=== PATIENT | male | born 1955 | race Caucasian/White ===

== ENCOUNTER 2020-12-13 19:58 | Inpatient (IN) | payer OTHER ==
[~2020-12-13] VITALS: Ht 182.9 cm; Wt 98.0 kg
[~2020-12-13 19:58] MED LIST: AMLODIPINE BESY10 MG PO; ATENOLOL 100MG100 M2 PO; EDARBI80 MG PO; GLYBURIDE 5 MG T5 M1 PO; HYDROCHLOROTHIA25 M1 PO; KOMBIGLYZE XR1 EAC1 PO; NORCO 5-325 TA1 EACH PO; SIMVASTATIN40 MG PO; TAZTIA XT120 M1 PO
[2020-12-13 20:10] VITALS: BP 183/117
[2020-12-13] MEDS ORDERED: ELIQUIS5 MG PO (20:30)
[2020-12-13] MEDS ORDERED: TYLENOL325 M1 PO (20:30)
[2020-12-13] MEDS ORDERED: LIPITOR80 MG PO (20:31)
[2020-12-13] MEDS ORDERED: CELEXA 20 MG TA20 MG PO (20:31)
[2020-12-13] MEDS ORDERED: CARVEDILOL12.5 MG PO (20:31)
[2020-12-13] MEDS ORDERED: ASPIRIN EC81 M1 PO (20:31)
[2020-12-13] MEDS ORDERED: FUROSEMIDE 20 M20 MG PO (20:32)
[2020-12-13] MEDS ORDERED: ISOSORBIDE DN 110 M1 PO (20:32)
[2020-12-13] MEDS ORDERED: VYZULTA5 ML OPHTHALMIC (20:32)
[2020-12-13] MEDS ORDERED: COZAAR 25 MG TA25 M1 PO (20:33)
[2020-12-13] MEDS ORDERED: DAILY VITAMIN1 EAC6 PO (20:33)
[2020-12-13] MEDS ORDERED: METFORMIN HCL500 M3 PO (20:33)
[2020-12-13] MEDS ORDERED: NITROSTAT0.4 M1 SUBLING (20:34)
[2020-12-13] MEDS ORDERED: PROTONIX40 M2 PO (20:35)
[2020-12-13] MEDS ORDERED: SPIRONOLACTONE25 MG PO (20:35)
[2020-12-13 20:43] LABS: ABSOLUTE BASOPHILS 0.1 thou/uL (0.0-0.2); ABSOLUTE EOSINOPHILS 0.2 thou/uL (0.0-0.7); ABSOLUTE MONOCYTES 0.9 thou/uL (0.0-1.2); ABSOLUTE NEUTROPHILS 4.9 thou/uL (1.6-8.1); BASOPHILS 0.7 %; HEMOGLOBIN 12.2 gm/dL (14.0-18.0); LYMPHOCYTES 24.7 %; MCH 28.7 pg (26.0-34.0); MCHC 32.8 g/dL (28.0-37.0); MCV 87.6 fL (80.0-100.0); MPV 7.1 fl. (7.2-11.1); NUCLEATED RBCS 0 /100WBC; PLATELET COUNT* 533 thou/uL (150-400); POLYS 61.6 %; RBC 4.23 mil/uL (4.50-6.00); RDW-CV 14.9 % (10.5-14.5)
[2020-12-13 20:56] LABS: APTT 30.3 Seconds (25.0-31.3); INR 1.1; PROTIME 11.4 Seconds (9.20-11.50)
[2020-12-13 20:58] LABS: CALCIUM 8.9 mg/dL (8.5-10.1); CREATININE 1.3 mg/dL (0.6-1.3); POTASSIUM 5.3 mmol/L (3.5-5.1)
[2020-12-13 21:04] LABS: ALBUMIN 3.1 g/dL (3.4-5.0); TOTAL BILIRUBIN 0.3 mg/dL (<0.1-1.0); TOTAL PROTEIN 6.9 g/dL (6.4-8.2)
[2020-12-13 21:51] VITALS: BP 158/97
[2020-12-13 22:30] VITALS: BP 156/111
[2020-12-13 23:00] VITALS: BP 130/85
[2020-12-13 23:30] VITALS: BP 144/92
[2020-12-14] VITALS (47 sets, daily range): BP systolic 99–162; BP diastolic 54–103
--- NOTE | 2020-12-14 13:56 | EKG ---
[place] [address] ELECTROCARDIOGRAM REPORT Name: KENAN BOB JR Room: [address] ADM IN .R.#: [id number] Admission: 12/13/20 Attend Phys: Mark Shook Discharge: Date of : 53 Date of Service: 12/13/202013 Report #: [id number] THIS REPORT FOR: //name// [facility] ED Test Date: 2020-12-13 Test Time: 20:14:17 Pat Name: KENAN BOB Department: Room: [facility] Gender: M Documentation Manager: DEA : 1955 Requested By: Jesika Jaramillo Order Number: [id number] MD: Ramón Rogers Measurements Intervals [place] Rate: 95 P: -56 [place]: 172 QRS: 50 QRSD: 102 T: 60 QT: 346 QTc: 435 Interpretive Statements Sinus rhythm Probable anterolateral infarct, acute injury must be considered Baseline wander in lead(s) I,II,aVR No previous ECG available for comparison Electronically Signed On 12-14-2020 13:55:59 CDT by Ramón Rogers [email or web address] <ELECTRONICALLY SIGNED> By: Ramón Rogers MD, [facility] 12/14/20 1355 13 13 Ramón Rogers MD, [facility] /EPI
[2020-12-14 15:26] LABS: CALCIUM 8.1 mg/dL (8.5-10.1); CREATININE 1.3 mg/dL (0.6-1.3); POTASSIUM 4.2 mmol/L (3.5-5.1)
--- NOTE | 2020-12-14 16:47 | 2DMMODE ---
[place] [address] 2 D/M-MODE ECHOCARDIOGRAM Name: KENAN BOB Room: [address] ADM IN .R.#: [id number] Admission: 12/13/20 Attend Phys: Mark Shook Discharge: Date of : 53 Date of Service: 12/14/20 1646 Report #: [id number] THIS REPORT FOR: cc: GODWIN HOLLADN,GODWIN Rogers,aRmón Fabian MD [facility] ~ APPROVED REPORT Study performed: 12/14/2020 15:14:11 EXAM: Limited 2D Echocardiogram Room #: [facility] Status: routine BSA: 2.20 HR: 84 bpm BP: 121/71 mmHg Rhythm: NSR Other Information Study Quality: Good Indications Acute PR Left Ventricle The left ventricle is normal size. Regional wall motion abnormalities are noted with akinesis of the entire anterior wall with the exception of the proximal septum. Small apical thrombus is suggested. There is normal left ventricular wall thickness. Left ventricular systolic function is severely decreased. LVEF is 25-30%. Right Ventricle The right ventricle is normal size. The right ventricular systolic function is normal. Atria The left atrium size is normal. The right atrium size is normal. Aortic Valve Mild aortic valve sclerosis. No aortic regurgitation is present. Mitral Valve The mitral valve is normal in structure. Trace mitral [facility] [address] [place] [address] 2 D/M-MODE ECHOCARDIOGRAM Name: KENAN BOB Room: [address] IN .R.#: [id number] Admission: 12/13/20 Attend Phys: Mark Shook Discharge: Date of : 53 Date of Service: 12/14/201645 Report #: [id number] regurgitation. Tricuspid Valve The tricuspid valve is normal in structure. Trace tricuspid regurgitation. Pulmonic Valve The pulmonary valve is normal in structure. There is no pulmonic valvular regurgitation. Great Vessels The aortic root is normal in size. IVC is normal in size and collapses >50% with inspiration. Pericardium Left pleural effusion. <Conclusion> The left ventricle is normal size. There is normal left ventricular wall thickness. Left ventricular systolic function is severely decreased. LVEF is 25-30%. The right ventricle is normal size. The left atrium size is normal. Mild aortic valve sclerosis. The mitral valve is normal in structure. IVC is normal in size and collapses >50% with inspiration. Regional wall motion abnormalities are noted with akinesis of the entire anterior wall with the exception of the proximal septum. Small apical thrombus is suggested. <ELECTRONICALLY SIGNED> By: Ramón Rogers MD, [facility] 12/14/201645 45 1646 Ramón Rogers MD, FACC /INF
[2020-12-15] VITALS (26 sets, daily range): BP systolic 93–145; BP diastolic 46–89
[2020-12-15] MEDS ORDERED: LASIX 40 MG TAB40 M1 PO (11:54)
[2020-12-15] MEDS ORDERED: ISORDIL10 MG PO (11:54)
[2020-12-15] MEDS ORDERED: SPIRONOLACTONE25 MG PO (11:54)
[2020-12-15] MEDS ORDERED: COREG6.25 MG PO (11:54)
== END 2020-12-15 13:25 | disposition home or self-care (01) | DRG 640 ==
LOC: M.ERS 19:58 → M.ICU 21:10 → M.TBA-ER 21:10 → M.ICU 21:42
PROVIDERS: Personal Emergency Response Attendant; Registered Nurse; ADMIT Internal Medicine; ATTEND Internal Medicine
DX: E87.1 Hypo-osmolality and hyponatremia (principal); I50.23 Acute on chronic systolic (congestive) heart failure; G61.81 Chronic inflammatory demyelinating polyneuritis; I24.9 Acute ischemic heart disease, unspecified; I16.0 Hypertensive urgency; I11.0 Hypertensive heart disease with heart failure; I25.10 Atherosclerotic heart disease of native coronary artery without angina pectoris; E78.00 Pure hypercholesterolemia, unspecified; I25.5 Ischemic cardiomyopathy; E78.5 Hyperlipidemia, unspecified; E11.42 Type 2 diabetes mellitus with diabetic polyneuropathy; E87.5 Hyperkalemia; Z20.822 Contact with and (suspected) exposure to COVID-19; Z79.82 Long term (current) use of aspirin; I25.2 Old myocardial infarction; Z79.899 Other long term (current) drug therapy; Z79.01 Long term (current) use of anticoagulants; Z79.84 Long term (current) use of oral hypoglycemic drugs

== ENCOUNTER 2021-08-29 17:42 | Inpatient (IN) | payer OTHER ==
[~2021-08-29] VITALS: Ht 190.5 cm; Wt 124.5 kg
[~2021-08-29 17:42] MED LIST changes: +ASPIRIN EC81 M1 PO; +CARVEDILOL12.5 MG PO; +CELEXA 20 MG TA20 MG PO; +COREG6.25 MG PO; +COZAAR 25 MG TA25 M1 PO; +DAILY VITAMIN1 EAC6 PO; +ELIQUIS5 MG PO; +FUROSEMIDE 20 M20 MG PO; +ISORDIL10 MG PO; +ISOSORBIDE DN 110 M1 PO; +LASIX 40 MG TAB40 M1 PO; +LIPITOR80 MG PO; +METFORMIN HCL500 M3 PO; +NITROSTAT0.4 M1 SUBLING; +PROTONIX40 M2 PO; +SPIRONOLACTONE25 MG PO; +TYLENOL325 M1 PO; +VYZULTA5 ML OPHTHALMIC
[2021-08-29 17:44] VITALS: BP 150/89
[2021-08-29] MEDS ORDERED: COREG25 M1 PO (17:52)
[2021-08-29] MEDS ORDERED: CLONIDINE HCL0.1 MG PO (17:52)
[2021-08-29] MEDS ORDERED: ENTRESTO 97 MG1 EACH PO (17:53)
[2021-08-29] MEDS ORDERED: DEMADEX20 MG PO (17:53)
[2021-08-29] MEDS ORDERED: OMEPRAZOLE 20 M20 M1 PO (17:53)
[2021-08-29 18:17] LABS: CALCIUM 8.5 mg/dL (8.5-10.1); CREATININE 1.5 mg/dL (0.6-1.3); POTASSIUM 4.5 mmol/L (3.5-5.1)
[2021-08-29 18:19] LABS: ABSOLUTE EOSINOPHILS 0.1 thou/uL (0.0-0.7); ABSOLUTE LYMPHOCYTES 0.6 thou/uL (0.8-5.3); ABSOLUTE MONOCYTES 0.6 thou/uL (0.0-1.2); ABSOLUTE NEUTROPHILS 3.8 thou/uL (1.6-8.1); BASOPHILS 0.9 %; EOSINOPHILS 1.1 %; HEMOGLOBIN 9.9 gm/dL (14.0-18.0); LYMPHOCYTES 12.5 %; MCH 23.3 pg (26.0-34.0); MCHC 30.9 g/dL (28.0-37.0); MCV 75.6 fL (80.0-100.0); MPV 7.5 fl. (7.2-11.1); NUCLEATED RBCS 0 /100WBC; PLATELET COUNT* 330 thou/uL (150-400); POLYS 74.5 %; RBC 4.23 mil/uL (4.50-6.00); RDW-CV 19.2 % (10.5-14.5); WBC 5.1 thou/uL (4.0-11.0)
[2021-08-29 18:27] LABS: ALBUMIN 3.2 g/dL (3.4-5.0); MAGNESIUM 1.9 mg/dL (1.8-2.4); TOTAL BILIRUBIN 0.7 mg/dL (<0.1-1.0); TOTAL PROTEIN 6.5 g/dL (6.4-8.2)
[2021-08-29 22:20] LABS: URINE BILIRUBIN NEGATIVE (Negative); URINE BLOOD NEGATIVE (Negative); URINE CLARITY CLEAR; URINE COLOR YELLOW; URINE GLUCOSE-RANDOM NEGATIVE (Negative); URINE KETONES TRACE (Negative); URINE LEUKOCYTES-REFLEX NEGATIVE (Negative); URINE NITRITE-REFLEX NEGATIVE (Negative); URINE PROTEIN NEGATIVE (Negative); URINE UROBILINOGEN 0.2 E.U./dl (0.2-1.0)
[2021-08-29 22:34] VITALS: BP 164/68
[2021-08-30] VITALS (9 sets, daily range): BP systolic 127–157; BP diastolic 60–99
--- NOTE | 2021-08-30 09:53 | EKG ---
[place] [address] ELECTROCARDIOGRAM REPORT Name: KENAN BOB JR Room: [address] ADM IN [facility]#: [id number] Admission: 08/29/21 Attend Phys: Colin Bagley, Discharge: Date of : 53 Date of Service: 08/29/21 1747 Report #: [id number] THIS REPORT FOR: //name// [facility] ED Test Date: 2021-08-29 Test Time: 17:47:57 Pat Name: KENAN BOB Department: Room: [facility] Gender: M Mat Inspector: : 1955 Requested By: Nate Toledo Order Number: [id number] MD: Juancho Pavon Measurements Intervals [place] Rate: 71 P: 46 [place]: 191 QRS: 26 QRSD: 98 T: 69 QT: 572 QTc: 622 Interpretive Statements Sinus rhythm low voltage Anteroseptal infarct, age indeterminate Prolonged QT interval Compared to ECG 12/13/2020 20:14:17 Prolonged QT interval now present Myocardial infarct finding still present Electronically Signed On 08-30-2021 9:53:30 [employer] by Juancho Pavon [email or web address] <ELECTRONICALLY SIGNED> By: Juancho Pavon MD, FAC 08/30/21 0953 1747 1747 Juancho Pavon MD, FAC /EPI
--- NOTE | 2021-08-30 12:59 | 2DMMODE ---
[place] [address] 2 D/M-MODE ECHOCARDIOGRAM Name: KENAN BOB JR Room: [address] IN [facility]#: [id number] Admission: 08/29/21 Attend Phys: Colin Bagley, Discharge: Date of : 53 Date of Service: 08/30/21 1259 Report #: [id number] THIS REPORT FOR: cc: GODWIN HOLLAND,GODWIN Pavon,Juancho Fink MD [facility] ~ APPROVED REPORT Study performed: 08/30/2021 09:56:32 EXAM: Comprehensive 2D, Doppler, and color-flow Echocardiogram Patient Location: In-Patient Room #: [facility] Status: routine BSA: 2.45 HR: 63 bpm BP: 143/85 mmHg Rhythm: NSR Other Information Study Quality: Good Indications weakness 2D Dimensions IVSd: 12.89 (7-11mm) LVOT Diam: 21.28 (18-24mm) LVDd: 52.73 mm PWd: 12.05 (7-11mm) Ascending Ao: 38.69 (22-36mm) LVDs: 39.10 (25-40mm) Aortic Root: 34.47 mm Volumes Left Atrial Volume (Systole) LA ESV Index: 34.30 mL/m2 Aortic Valve AoV Peak Melo.: 1.33 m/s AO Peak Gr.: 7.06 mmHg LVOT Max P.67 mmHg AO Mean Gr.: 4.09 mmHg LVOT Mean P.47 mmHg LVOT Max V: 0.82 m/s AO V2 VTI: 30.06 cm LVOT Mean V: 0.57 m/s SEAN (VTI): 2.11 cm2 LVOT V1 VTI: 17.83 [place] [address] 2 D/M-MODE ECHOCARDIOGRAM Name: KENAN BOB JR Room: [address] IN ..#: [id number] Admission: 08/29/21 Attend Phys: Colin Bagley, Discharge: Date of : 53 Date of Service: 08/30/21 1259 Report #: [id number] Mitral Valve E/A Ratio: 0.83 MV Decel. Time: 178.04 ms MV E Max Melo.: 0.86 m/s MV PHT: 51.63 ms MVA (PHT): 4.26 cm2 TDI E/Lateral E': 7.82 E/Medial E': 12.29 Medial E' Melo.: 0.07 m/s Lateral E' Melo.: 0.11 m/s Pulmonary Valve PV Peak Melo.: 1.05 m/s PV Peak Gr.: 4.37 mmHg Tricuspid Valve RAP Estimate: 10.00 mmHg TR Peak Gr.: 36.45 mmHg RVSP: 46.00 mmHg PA Pressure: 46.00 mmHg Left Ventricle Left ventricle is mildly dilated. There is global hypokinesis of the left ventricle. Mild concentric left ventricular hypertrophy. Left ventricular systolic function is severely decreased. LVEF is 25-30%. Grade I - abnormal relaxation pattern. Right Ventricle Right ventricle is dilated. The right ventricular systolic function is normal. Atria The left atrium size is normal. Right atrium is dilated. Aortic Valve Mild aortic valve sclerosis. No aortic regurgitation is present. There is no aortic valvular stenosis. Mitral Valve The mitral valve is normal in structure. Mild mitral regurgitation. No evidence of mitral valve stenosis. Tricuspid Valve The tricuspid valve is normal in structure. Mild tricuspid regurgitation. estimated pa pressure 45 [place] [address] 2 D/M-MODE ECHOCARDIOGRAM Name: KENAN BOB JR Room: [address]#: [id number] Admission: 08/29/21 Attend Phys: Colin Bagley, Discharge: Date of : 53 Date of Service: 08/30/21 1259 Report #: [id number] The pulmonary valve is normal in structure. Mild pulmonic regurgitation. Great Vessels Aortic root is mildly dilated. IVC is dilated. Pericardium Trace pericardial effusion. Left pleural effusion. <Conclusion> Mild concentric left ventricular hypertrophy. LVEF is 25-30%. Mild aortic valve sclerosis. Mild mitral regurgitation. Mild tricuspid regurgitation. estimated pa pressure 45 mm Hg <ELECTRONICALLY SIGNED> By: Juancho Pavon MD, FACC 08/30/21 1259 1259 1259 Juancho Pavon MD, FACC /INF
[2021-08-31 02:06] LABS: GLYCOHEMOGLOBIN (HGB A1C) 6.9 % (4.8-5.6)
[2021-08-31 04:00] VITALS: BP 149/68
[2021-08-31 05:23] LABS: HEMATOCRIT 28.7 % (42.0-52.0); HEMOGLOBIN 8.8 gm/dL (14.0-18.0); MCH 23.4 pg (26.0-34.0); MCHC 30.5 g/dL (28.0-37.0); MCV 76.7 fL (80.0-100.0); MPV 7.3 fl. (7.2-11.1); RBC 3.75 mil/uL (4.50-6.00); RDW-CV 19.1 % (10.5-14.5); WBC 4.2 thou/uL (4.0-11.0)
[2021-08-31 06:14] LABS: ALBUMIN 3.1 g/dL (3.4-5.0); ALKALINE PHOSPHATASE 53 U/L (46-116); ANION GAP 6 mmol/L (7-16); BUN 33 mg/dL (7-18); CALCIUM 8.2 mg/dL (8.5-10.1); CHLORIDE 104 mmol/L (98-107); CHOLESTEROL 65 mg/dL (<200); CO2 30 mmol/L (21-32); CREATININE 1.3 mg/dL (0.6-1.3); GLUCOSE 112 mg/dL (70-99); HDL CHOLESTEROL 36 mg/dL (>40); LDL CHOLESTEROL 22 mg/dL (<100); MAGNESIUM 1.9 mg/dL (1.8-2.4); POTASSIUM 3.9 mmol/L (3.5-5.1); SGOT 17 U/L (15-37); SGPT 17 U/L (30-65); SODIUM 140 mmol/L (136-145); TC:HDL 1.8 Ratio (Not establshd); TOTAL BILIRUBIN 0.6 mg/dL (<0.1-1.0); TOTAL PROTEIN 6.2 g/dL (6.4-8.2); TRIGLYCERIDE 36 mg/dL (<150); VLDL 7 mg/dL (<40)
[2021-08-31 06:31] LABS: SERUM ASSESSMENT Clear
[2021-08-31 08:24] VITALS: BP 152/75
[2021-08-31 09:00] VITALS: BP 149/75
[2021-08-31 11:56] VITALS: BP 142/82
--- NOTE | 2021-08-31 14:18 | CON ---
[address] [address] CONSULTATION Name: KENAN BOB Room: [address] IN ..#: [id number] Admission: 08/29/21 Attend Phys: Colin Bagley MD Discharge: Date of : 53 Report #: [id number] THIS REPORT FOR: cc: GODWIN MORALES,Juancho Zuniga MD [facility] ~ cc: Godwin Morales DO DATE OF CONSULTATION: 08/30/2021 CARDIOLOGY CONSULTATION HISTORY OF PRESENT ILLNESS: The patient is a 65-year-old white male who I was asked to see in the hospital today after he complained to being short of breath. The patient notes that he has a long history of atrial fibrillation and has been on Eliquis. He apparently has never been cardioverted. He did have a treadmill test years ago, but never had a heart catheterization. He notes that last November he was short of breath and was admitted to [facility]. He was felt to have a cardiomyopathy with an ejection fraction of 30-35%. He was discharged. He has been on medications since that time. Recently, he has been having increasing shortness of breath, swollen feet and increasing abdominal girth. The dose of torsemide was increased by his doctor. However, yesterday because of increasing swelling, he finally came to the hospital and admitted for further evaluation and treatment. He denies recent chest pain, fever, cough, leg pain, palpitations, syncope. PAST MEDICAL HISTORY: He has had no surgical procedures. Does have a history of hypertension, diabetes. He has a history of CIDP and is followed by neurologist and received an infusion once a month by nurse at the home intravenously. It is an autoimmune disorder. CURRENT MEDICATIONS: Consists of Eliquis, Lipitor, carvedilol, clonidine, glyburide, Imdur, metformin, Entresto, torsemide. ALLERGIES: He has no known drug allergies. FAMILY HISTORY: Negative for heart disease. SOCIAL HISTORY: He is . He is retired from the [employer], lives in [place] with his . He ambulates with a walker. No smoking or alcohol use. REVIEW OF SYSTEMS: He is overweight being 6 feet 3 inches, 260 pounds. He does snore at night. No history of asthma, liver disease. He has chronic kidney disease. No cancer. No chronic skin condition. No [place] [address] CONSULTATION Name: KENAN BOB JR Room: [address]#: [id number] Admission: 08/29/21 Attend Phys: Colin Bagley MD Discharge: Date of : 53 Report #: [id number] wear glasses. PHYSICAL EXAMINATION: GENERAL: Revealed a middle-aged male, appeared in no acute distress. VITAL SIGNS: His blood pressure 140/80, pulse 70, he was afebrile. HEENT: He was anicteric. Conjunctivae pink. Mucous members moist. Neck veins nondistended. No carotid bruits. Neck is supple. CHEST: Decreased breath sounds at the bases. HEART: Regular rate and rhythm, no significant murmur. ABDOMEN: Obese. EXTREMITIES: He had a fluid wave noted. Bilateral edema up to the mid tibial area. SKIN: Cool and dry. NEUROLOGIC: Nonfocal. LABORATORY DATA: His ECG on admission showed a sinus rhythm with evidence of previous anterior infarction. No acute changes were noted. The patient actually had an echocardiogram done last December that showed an ejection fraction of 30% with aortic sclerosis. His x-rays, the patient had a portable chest x-ray in the Emergency Room yesterday that showed cardiomegaly, pulmonary vascular congestion, small effusion. His lab work, BUN 36, creatinine 1.5, albumin 3.2. High sensitivity troponin was 28. BNP 15,651. His hemoglobin 9.9. His COVID antigen stat test was negative. Urinalysis negative for protein. IMPRESSION AND RECOMMENDATIONS: 1. Acute on chronic systolic heart failure. The patient has been on Entresto and beta bonita. I would not recommend Aldactone because of chronic kidney disease. Recommend diuresis with IV Demadex. 2. History of atrial fibrillation. The patient is chronically anticoagulated with Eliquis. Currently in sinus rhythm. 3. Hypertension. The patient is on ARB and beta bonita and clonidine. 4. Diabetes. 5. Hyperlipidemia. The patient is on a statin drug. 6. Chronic kidney disease. The patient followed by Nephrology. 7. Obesity. 8. Snore at night. Would rule out sleep apnea. 9. History of chronic autoimmune disease. The patient received infusions once a month. <ELECTRONICALLY SIGNED> By: Juancho Pavon MD, [facility] 08/31/21 1418 1029 [id number] Pavon MD, [facility] /nt
[2021-08-31 16:05] VITALS: BP 149/75
[2021-09-01] VITALS: BP 147/79
[2021-09-01 04:00] VITALS: BP 138/83
[2021-09-01 05:13] LABS: HEMATOCRIT 29.4 % (42.0-52.0); HEMOGLOBIN 9.2 gm/dL (14.0-18.0); MCH 23.7 pg (26.0-34.0); MCHC 31.1 g/dL (28.0-37.0); MCV 76.2 fL (80.0-100.0); MPV 7.1 fl. (7.2-11.1); RBC 3.86 mil/uL (4.50-6.00); RDW-CV 19.2 % (10.5-14.5); WBC 4.6 thou/uL (4.0-11.0)
[2021-09-01 06:05] LABS: CALCIUM 8.7 mg/dL (8.5-10.1); CREATININE 1.2 mg/dL (0.6-1.3); MAGNESIUM 1.8 mg/dL (1.8-2.4); POTASSIUM 3.8 mmol/L (3.5-5.1)
[2021-09-01 06:15] LABS: ALBUMIN 3.1 g/dL (3.4-5.0); CALCIUM 8.4 mg/dL (8.5-10.1); CREATININE 1.2 mg/dL (0.6-1.3); TOTAL BILIRUBIN 0.6 mg/dL (<0.1-1.0)
[2021-09-01 07:49] VITALS: BP 147/84
[2021-09-01 09:00] VITALS: BP 147/84
[2021-09-01 16:00] VITALS: BP 146/73
[2021-09-02] VITALS: BP 115/55
[2021-09-02 04:00] VITALS: BP 163/93
[2021-09-02 04:00] LABS: HEMOGLOBIN 8.9 gm/dL (14.0-18.0); MCH 23.4 pg (26.0-34.0); MCHC 30.8 g/dL (28.0-37.0); MCV 75.9 fL (80.0-100.0); RBC 3.82 mil/uL (4.50-6.00); RDW-CV 19.6 % (10.5-14.5)
[2021-09-02 04:27] LABS: ALBUMIN 2.9 g/dL (3.4-5.0); CALCIUM 8.2 mg/dL (8.5-10.1); CREATININE 1.1 mg/dL (0.6-1.3); MAGNESIUM 1.9 mg/dL (1.8-2.4); POTASSIUM 4.3 mmol/L (3.5-5.1); TOTAL BILIRUBIN 0.6 mg/dL (<0.1-1.0)
--- NOTE | 2021-09-02 09:47 | CON ---
[address] [address] CONSULTATION Name: KENAN BOB Room: [address] IN .R.#: [id number] Admission: 08/29/21 Attend Phys: Colin Bagley MD Discharge: Date of : 53 Report #: [id number] THIS REPORT FOR: cc: GODWIN HOLLAND,GODWIN Simmons,Rony Starks MD ~ DATE OF CONSULTATION: 08/30/2021 REQUESTING PHYSICIAN: ____ REASON FOR CONSULTATION: Fluid overload and mild worsening renal function. HISTORY OF PRESENT ILLNESS: The patient is a very pleasant 65-year-old gentleman with medical history significant for coronary artery disease, ischemic cardiomyopathy with left ventricular ejection fraction around 25%, diabetes mellitus type 2, hypertension, who presents with complaints of progressive increased abdominal girth and increased lower extremity edema. He was diagnosed with fluid retention, congestive heart failure exacerbation, was given IV Lasix and he feels better now. He still is very edematous. His creatinine was 1.5, his baseline around 1.3. PAST MEDICAL HISTORY: As mentioned earlier. SOCIAL HISTORY: No current tobacco or alcohol abuse. MEDICATIONS: Reviewed. At home, he was taking torsemide 20 mg a day from the diuretic standpoint. REVIEW OF SYSTEMS: Positive for dyspnea on exertion, increased abdominal girth, increased weight and significant edema of his abdominal wall and lower extremities. Rest of the systems reviewed and negative. FAMILY HISTORY: Positive for diabetes and hypertension. PHYSICAL EXAMINATION: GENERAL: Awake, alert, and oriented. VITAL SIGNS: His blood pressure now is 133/70, heart rate 91, afebrile. HEENT: Pupils are round. NECK: Has elevated JVD. LUNGS: Decreased breath sounds in both bases. CARDIOVASCULAR: Distant heart tones. ABDOMEN: Distended. There is significant edema of abdominal wall. EXTREMITIES: Lower extremities with 4+ [place] [address] CONSULTATION Name: KENAN BOB JR Room: [address]#: [id number] Admission: 08/29/21 Attend Phys: Colin Bagley MD Discharge: Date of : 53 Report #: [id number] DIAGNOSTIC DATA: Chest x-ray revealed findings compatible with heart failure and with bilateral pleural effusion. ASSESSMENT: 1. Chronic kidney disease stage 3, baseline creatinine around 1.3 with mild bump in creatinine to 1.5. 2. Congestive heart failure exacerbation with significant fluid retention. 3. Diabetes mellitus type 2. 4. History of hypertension. 5. Cardiomyopathy with left ventricular ejection fraction of 25%. PLAN: We will diurese. I am going to put him on Lasix 40 mg IV q.12 hours. Follow his weight and follow his creatinine level. It is acceptable if creatinine bumps up somewhat. We need to control his fluids. Obviously, the patient cannot function with so much fluids on. We will follow his daily weights. <ELECTRONICALLY SIGNED> By: Rony Simmons MD 09/02/21 0947 0949 [id number] Simmons MD /nt
[2021-09-02 12:00] VITALS: BP 143/82
[2021-09-02 16:00] VITALS: BP 167/74
[2021-09-02 19:45] VITALS: BP 152/85
[2021-09-03] VITALS (7 sets, daily range): BP systolic 132–144; BP diastolic 71–83
[2021-09-03 05:43] LABS: HEMATOCRIT 29.1 % (42.0-52.0); HEMOGLOBIN 8.9 gm/dL (14.0-18.0); MCH 23.4 pg (26.0-34.0); MCHC 30.6 g/dL (28.0-37.0); MCV 76.5 fL (80.0-100.0); MPV 7.2 fl. (7.2-11.1); RBC 3.8 mil/uL (4.50-6.00); RDW-CV 19.1 % (10.5-14.5); WBC 4.1 thou/uL (4.0-11.0)
[2021-09-03 06:57] LABS: ALBUMIN 2.8 g/dL (3.4-5.0); CALCIUM 8.1 mg/dL (8.5-10.1); CREATININE 1.1 mg/dL (0.6-1.3); MAGNESIUM 1.6 mg/dL (1.8-2.4); TOTAL BILIRUBIN 0.6 mg/dL (<0.1-1.0)
[2021-09-04] VITALS: BP 122/58
[2021-09-04 04:00] VITALS: BP 133/75
[2021-09-04 05:27] LABS: ABSOLUTE EOSINOPHILS 0.2 thou/uL (0.0-0.7); ABSOLUTE LYMPHOCYTES 0.7 thou/uL (0.8-5.3); ABSOLUTE MONOCYTES 0.7 thou/uL (0.0-1.2); EOSINOPHILS 4.2 %; HEMATOCRIT 28.9 % (42.0-52.0); HEMOGLOBIN 8.9 gm/dL (14.0-18.0); LYMPHOCYTES 15.7 %; MCH 23.3 pg (26.0-34.0); MCHC 30.6 g/dL (28.0-37.0); MONOCYTES 14.4 %; MPV 7.5 fl. (7.2-11.1); NUCLEATED RBCS 0 /100WBC; PLATELET COUNT* 282 thou/uL (150-400); POLYS 64.7 %; RBC 3.81 mil/uL (4.50-6.00); RDW-CV 19.4 % (10.5-14.5); WBC 4.6 thou/uL (4.0-11.0)
[2021-09-04 05:46] LABS: ALBUMIN 2.8 g/dL (3.4-5.0); CREATININE 1.2 mg/dL (0.6-1.3); POTASSIUM 4.4 mmol/L (3.5-5.1); TOTAL BILIRUBIN 0.6 mg/dL (<0.1-1.0)
[2021-09-04 06:47] VITALS: BP 133/75
[2021-09-04 12:57] VITALS: BP 123/68
[2021-09-04 16:49] VITALS: BP 135/72
[2021-09-04 16:53] VITALS: BP 135/72
[2021-09-05] VITALS: BP 131/71
[2021-09-05 04:52] VITALS: BP 141/79
[2021-09-05 04:52] LABS: HEMATOCRIT 28.2 % (42.0-52.0); HEMOGLOBIN 8.8 gm/dL (14.0-18.0)
[2021-09-05 05:06] LABS: CREATININE 1.1 mg/dL (0.6-1.3); POTASSIUM 4.2 mmol/L (3.5-5.1)
[2021-09-05 05:08] LABS: CREATININE 1.1 mg/dL (0.6-1.3); POTASSIUM 4.3 mmol/L (3.5-5.1)
[2021-09-05 11:49] VITALS: BP 121/70
[2021-09-05 16:01] VITALS: BP 136/73
[2021-09-05 20:03] VITALS: BP 134/80
[2021-09-05 23:40] VITALS: BP 139/77
[2021-09-06 07:02] LABS: ABSOLUTE LYMPHOCYTES 0.7 thou/uL (0.8-5.3)
[2021-09-06 07:04] LABS: ABSOLUTE BASOPHILS 0.1 thou/uL (0.0-0.2); ABSOLUTE EOSINOPHILS 0.1 thou/uL (0.0-0.7); ABSOLUTE MONOCYTES 0.6 thou/uL (0.0-1.2); ABSOLUTE NEUTROPHILS 3.6 thou/uL (1.6-8.1); EOSINOPHILS 2.4 %; HEMATOCRIT 29.2 % (42.0-52.0); LYMPHOCYTES 13.6 %; MCH 23.4 pg (26.0-34.0); MCHC 30.9 g/dL (28.0-37.0); MCV 75.6 fL (80.0-100.0); MONOCYTES 12.2 %; MPV 7.4 fl. (7.2-11.1); NUCLEATED RBCS 0 /100WBC; PLATELET COUNT* 275 thou/uL (150-400); POLYS 69.8 %; RBC 3.86 mil/uL (4.50-6.00); RDW-CV 19.9 % (10.5-14.5); WBC 5.1 thou/uL (4.0-11.0)
[2021-09-06 07:09] LABS: CREATININE 1.1 mg/dL (0.6-1.3); POTASSIUM 4.2 mmol/L (3.5-5.1)
[2021-09-06 07:10] LABS: ALBUMIN 2.8 g/dL (3.4-5.0); CALCIUM 8.2 mg/dL (8.5-10.1); TOTAL BILIRUBIN 0.7 mg/dL (<0.1-1.0)
[2021-09-06 07:37] VITALS: BP 147/87
[2021-09-06 14:01] VITALS: BP 129/72
[2021-09-06 18:39] VITALS: BP 130/77
[2021-09-06 20:00] VITALS: BP 143/85
== END 2021-09-07 | DRG 177 ==
LOC: M.ERS 17:42 → M.TBA-ER 20:30 → M.2W 20:30
PROVIDERS: Internal Medicine; Internal Medicine Cardiovascular Disease; Internal Medicine Nephrology; Physician Assistant Medical; ADMIT Internal Medicine; ATTEND Internal Medicine
PROC: 5A09357 Assistance with Respiratory Ventilation, Less than 24 Consecutive Hours, Continuous Positive Airway Pressure (ICD-10-PCS; principal; 2021-08-30)
PROC: 05HY33Z Insertion of Infusion Device into Upper Vein, Percutaneous Approach (ICD-10-PCS; 2021-09-02)
DX: J15.6 Pneumonia due to other Gram-negative bacteria (principal); N17.0 Acute kidney failure with tubular necrosis; I50.23 Acute on chronic systolic (congestive) heart failure; I13.0 Hypertensive heart and chronic kidney disease with heart failure and stage 1 through stage 4 chronic kidney disease, or unspecified chronic kidney disease; I42.9 Cardiomyopathy, unspecified; Z20.822 Contact with and (suspected) exposure to COVID-19; N18.30 Chronic kidney disease, stage 3 unspecified; E66.9 Obesity, unspecified; E78.5 Hyperlipidemia, unspecified; E78.00 Pure hypercholesterolemia, unspecified; E11.649 Type 2 diabetes mellitus with hypoglycemia without coma; E11.22 Type 2 diabetes mellitus with diabetic chronic kidney disease; E11.65 Type 2 diabetes mellitus with hyperglycemia; D64.9 Anemia, unspecified; I25.10 Atherosclerotic heart disease of native coronary artery without angina pectoris; K52.9 Noninfective gastroenteritis and colitis, unspecified; E53.8 Deficiency of other specified B group vitamins; I48.0 Paroxysmal atrial fibrillation; I25.2 Old myocardial infarction; Z68.34 Body mass index [BMI] 34.0-34.9, adult